=== PATIENT | male | born 1970 | race Caucasian/White ===

== ENCOUNTER 2021-05-15 11:15 | Emergency (ER) | payer SELFPAY ==
--- NOTE | ~2021-05-15 | XR_ITS ---
XR chest 2V DATE: 05/15/2021 12:29 INDICATION: Congestion TECHNIQUE: 2 views COMPARISON: 03/03/2010 two-view chest FINDINGS: Bilateral hyperinflation. No pulmonary infiltrate or consolidation, pleural effusion or pul monary vascular congestion or pneumothorax. Normal heart size. No hilar or mediastinal enlargement. Included skeletal structures are unremarkable. IMPRESSION: Bilateral hyperinflation Reviewed, dictated and finalized at location A. IMPRESSION: Bilateral hyperinflation
[2021-05-15 11:27] VITALS: BP 129/82; PULSE 96; RESP 16; TEMP 36.4; O2SAT 100
--- NOTE | 2021-05-15 12:09 | ED.URI ---
HPI - URI/Sore Throat General Chief Complaint: Upper Respiratory Infection Stated Complaint: Congestion Time Seen by Provider: 05/15/21 12:09 Source: patient Mode of arrival: ambulatory Limitations: no limitations History of Present Illness HPI Narrative: Stan Kearney is a 50 yo male who comes to [facility] with complaints of laryngitis and upper respiratory infection, for the past 2 months. He is complaining of bronchospasm particularly in the morning although he said he can have it anytime during the day. He continues to smoke requires a pack cigarettes a day, he has a coating on his tongue after using nebulizer that is his mother's and is unsure of the medication he is using and that Related Data Home Medications Medication Instructions Recorded Confirmed dextroamphetamine-amphetamine 10 mg PO DAILY 05/15/21 05/15/21 Allergies Allergy/AdvReac Type Severity Reaction Status Date / Time No Known Allergies Allergy Verified 05/15/21 11:45 Review of Systems Review of Systems: Narrative: CONSTITUTIONAL: Denies fever, chills, sweats. EYES: Denies visual changes, redness, discharge. ENT: Denies rhinorrhea, has congestion, sore throat, otalgia. CARDIOVASCULAR: Denies chest pain, palpitations, edema. RESPIRATORY: Denies dyspnea, has wheezing, has cough; complaining of bronchospasm GASTROINTESTINAL: Denies abdominal pain, nausea, vomiting, diarrhea. GENITOURINARY: Denies dysuria, hematuria, abnormal discharge SKIN: Denies rash or itching. NEUROLOGIC: Denies numbness, or focal weakness. PSYCHIATRIC: Denies anxiety or depression. [facility] Past Medical History Medical History Asthma Tobacco abuse Family History Family History Other Asthma Social History Social History (Updated 05/15/21 @ 12:21 by Sara Green CNP) Smoking status: Current every day smoker Alcohol intake: current Comments At time of signature, I agree with nursing past medical, surgical, social and family history. There is no relevant family history pertinent to the presenting complaint. Exam Narrative: Exam Narrative: GENERAL: This is a well-nourished, well-developed patient, in moderate distress. HEAD: normocephalic, atraumatic. EYES: Sclera clear/white. Vision is grossly intact. EARS: External ears normal, auditory canals clear and without drainage, TMs normal without perforation. Hearing grossly intact. NOSE: External nose normal without nasal discharge, nares without redness, has rhinorrhea. THROAT: Mucous membranes moist, posterior pharynx erythema-white coat on tongue NECK: Neck supple, non-tender CARDIOVASCULAR: Tachycardia rate and rhythm without murmurs, gallops, or rubs. RESPIRATORY: Clear to auscultation. Breath sounds equal bilaterally. No wheezes, rales, or rhonchi. GASTROINTESTINAL: Abdomen soft, SKIN: warm, intact with no suspicious lesions or rash, good texture and turgor. NEURO: awake, alert, and oriented to person, place and time. There were no obvious focal neurologic abnormalities. Steady gait EXTREMITIES: Normal range of motion. BACK: Nontender without deformity Course Course Emergency Course: Patient has difficulty breathing in the morning when he wakes he has got a hacking smoker's cough that a lot of times turns into his bronchospasm, he also has unpredictable bronchospasm throughout the day Chest x-ray done-bilateral hyperinflation no consolidation or effusion Started on albuterol, albuterol inhaler, prednisone,zyrtec-patient instructed to start a medication set up appoint with primary care physician, may need additional medication to stabilize his asthma Vital Signs Vital signs: Vital Signs Temperature 97.5 F L 05/15/21 11:27 Pulse Rate 96 05/15/21 11:27 Respiratory Rate 16 05/15/21 11:27 Blood Pressure 129/82 05/15/21 11:27 Pulse Oximetry 100 05/15/21 11:27 Temperature
[2021-05-15] MEDS: predniSONE 20 MG TABLET 60 MG PO (13:30)
== END 2021-05-15 13:30 | disposition home or self-care (01) ==
PROVIDERS: Emergency Provider Nurse Practitioner; PCP Family Medicine Adolescent Medicine
DX: J45.41 Moderate persistent asthma with (acute) exacerbation (principal); F17.200 Nicotine dependence, unspecified, uncomplicated
CPT/HCPCS: 71046; 99203; G0463; J7512

== ENCOUNTER 2022-02-26 11:01 | Emergency (ER) | payer BC, SELFPAY ==
--- NOTE | ~2022-02-26 | XR_ITS ---
EXAMINATION: XR lumbar spine min 4V DATE: 02/26/2022 11:49 INDICATION: Low back pain TECHNIQUE: Anteroposterior, lateral, and bilateral oblique views of the lumbar spine, and cone-down l ateral view of the lumbosacral junction were obtained. COMPARISON: None. FINDINGS: There is no fracture, dislocation, or subluxation. The vertebral body heights, alignment, a nd intervertebral disc spaces are normal. The paravertebral soft tissues are unremarkable. Small dege nerative osteophytes project from the anterior endplates of multiple vertebral bodies. IMPRESSION: 1. Mild lumbar spondylosis without acute findings. Reviewed, dictated and finalized at location A.
[2022-02-26 11:14] VITALS: BP 152/106; PULSE 107; RESP 16; TEMP 36.4; O2SAT 96
--- NOTE | 2022-02-26 12:46 | ED.FALL ---
HPI - Fall General Chief Complaint: Fall Stated Complaint: back pain Time Seen by Provider: 02/26/22 12:13 Source: patient Mode of arrival: ambulatory Limitations: no limitations History of Present Illness HPI Narrative: Patient is 51 years old white male presents with left lower back pain with shooting pain to the front of left thigh. Started 1 week ago. Patient was on a ladder, 3 feet above the ground ,left foot slipped off and landed on it. Patient did not hit the ground by his body. Patient was twisted badly in the way down to the ground. Patient did not see any medical provider yet. He denies patient denies bowel dysfunction, bladder dysfunction, altered sensation, focal weakness, or saddle numbness, Related Data Allergies Allergy/AdvReac Type Severity Reaction Status Date / Time No Known Allergies Allergy Verified 05/15/21 11:45 Review of Systems Review of Systems: All systems reviewed & are unremarkable except as noted in HPI and below PMFSH Past Medical History Medical History Asthma Tobacco abuse Family History Family History Other Asthma Social History Social History Smoking status: Current every day smoker Alcohol intake: current Exam Narrative: General appearance: Well-developed, well-nourished Skin: Normal color Head: Normocephalic, nontraumatic Eyes: Clear conjunctiva ENT: Oropharynx normal, ears normal, nose normal Neck: Supple, nontender Chest and respiratory: Airway patent, no respiratory distress, no accessory muscle use Heart: Regular rate/rhythm Abdomen: Soft, nontender, no organomegaly, quiet bowel sounds Vascular: Normal peripheral pulses, normal capillary refill. Musculoskeletal: Slight painful range of motion of left hip, no bruises, no swelling, no deformity, no localized tenderness Neurologic: Alert and oriented ?3, [employer] is normal as tested, no gross motor deficit Course Course Emergency Course: Musculoskeletal strain/sprain is my concern Vital Signs Vital signs: Vital Signs Temperature 36.4 C 02/26/22 11:14 Pulse Rate 107 H 02/26/22 11:14 Respiratory Rate 16 02/26/22 11:14 Blood Pressure 152/106 H 02/26/22 11:14 Pulse Oximetry 96 05/08/22 11:14 Temperature 36.4 C 02/26/22 11:14 Pulse Rate 107 H 02/26/22 11:14 Respiratory Rate 16 02/26/22 11:14 Blood Pressure 152/106 H 02/26/22 11:14 Pulse Oximetry 96 02/26/22 11:14 MDM - Fall Imaging Data Radiologist's impression: Impressions Lumbar Spine X-Ray 02/26/22 12:01 IMPRESSION: 1. Mild lumbar spondylosis without acute findings. Discharge Plan Discharge Clinical Impression: Lower back pain Qualifiers: Chronicity: acute Back pain laterality: left Sciatica presence: without sciatica Qualified Code(s): M54.50 - Low back pain, unspecified Patient Disposition: Home, Self-Care Condition: Stable Instructions: Antibiotic Form, Muscle Strain (ED) Additional Instructions: Return if symptoms are worsening , call your family physician for appointment, take Tylenol as as needed for aches and pain, continue home medications. Prescriptions: New naproxen [Naprosyn] 500 mg tablet 500 mg PO BID PRN (Reason: pain) Qty: 14 RF: 0 cyclobenzaprine 10 mg tablet 10 mg PO TID PRN (Reason: muscle spasm) Qty: 20 RF: 0 No Action dextroamphetamine-amphetamine 10 mg capsule,extended release 24hr 10 mg PO DAILY Qty: 30 RF: 0 Follow-up/Referrals: Philipp Pickens MD [Primary Care Provider] - Stand Alone Forms: Wor
[2022-02-26 13:05] VITALS: BP 142/86; PULSE 86; RESP 16; O2SAT 97
== END 2022-02-26 13:05 | disposition home or self-care (01) ==
PROVIDERS: Emergency Provider Emergency Medicine; PCP Family Medicine Adolescent Medicine
DX: S39.92XA Unspecified injury of lower back, initial encounter (principal); J45.909 Unspecified asthma, uncomplicated; M47.816 Spondylosis without myelopathy or radiculopathy, lumbar region; W11.XXXA Fall on and from ladder, initial encounter
CPT/HCPCS: 72110; 99283

== ENCOUNTER 2022-07-02 08:27 | Outpatient (CLI) | payer OTHER, SELFPAY ==
--- NOTE | ~2022-07-02 | MR_ITS ---
EXAMINATION: MR ankle LT wo con DATE: 07/02/2022 09:20 INDICATION: Swelling, mass or lump at the medial left ankle. TECHNIQUE: Magnetic resonance imaging (MRI) of the left ankle was performed without intravenous contr ast. Sequences included axial, sagittal and coronal T1-weighted FSE, axial and coronal T2-weighted FS FSE, sagittal fluid sensitive FSE STIR, axial T1-weighted FS FSE and coronal PD-weighted FSE COMPARISON: None. FINDINGS: Medial ankle ligaments: Deep and superficial deltoid ligaments as well as the spring ligament are normal. Lateral ankle ligaments: The anterior and posterior inferior tibiofibular ligaments are normal. The anterior talofibular, calc aneofibular and posterior talofibular ligaments are normal. Tendons: Achilles tendon is normal. The peroneus longus and brevis tendons are normal. The tibialis anterior a nd extensor hallucis longus and extensor digitorum longus tendons are normal. The tibialis posterior, flexor digitorum longus and flexor hallucis longus tendons are normal. Plantar fascia: Plantar aponeurosis is normal. Bones/other: Bone alignment is normal. Normal bone marrow signal throughout with no reactive edema, fracture or pa thologic marrow replacing process. Sinus Tarsi and tarsal tunnel are unremarkable. The marker indicat ing the region of concern projects over the medial hindfoot at the level of the sustentaculum sabina. N o abnormal masses or fluid collections identified. Fluid: Physiologic amount fluid in the joint spaces. No tenosynovitis, bursitis or other abnormal fluid radha ections. IMPRESSION: 1. Unremarkable MRI of the left ankle and hindfoot. Reviewed, dictated and finalized at location A.
== END 2022-07-02 08:28 | disposition home or self-care (01) ==
PROVIDERS: PCP Family Medicine Adolescent Medicine; Visit Provider Podiatrist Foot & Ankle Surgery
DX: R22.42 Localized swelling, mass and lump, left lower limb (principal)
CPT/HCPCS: 73721

== ENCOUNTER 2022-08-16 15:38 | Emergency (ER) | payer OTHER, SELFPAY ==
[2022-08-16 15:47] VITALS: BP 111/74; PULSE 100; RESP 16; TEMP 36.5; O2SAT 98
--- NOTE | 2022-08-16 16:14 | ED.URI ---
HPI - URI/Sore Throat General Chief Complaint: Upper Respiratory Infection Stated Complaint: Sore Throat Time Seen by Provider: 08/16/22 15:50 Source: patient Mode of arrival: ambulatory Limitations: no limitations History of Present Illness HPI Narrative: Stan is a 51-year-old male patient presenting to the clinic today with complaints of swollen lymph node to the left side of his neck. He reports that he did cough this morning and noticed a little bit of blood in his sputum. States that he thinks that the blood may have come from him brushing his teeth this morning. He denies any fever or chills. He is a current tobacco user MD elicited complaint: cough and sore throat Related Data Allergies Allergy/AdvReac Type Severity Reaction Status Date / Time No Known Allergies Allergy Verified 08/16/22 16:01 Review of Systems Review of Systems: Pertinent positives per HPI. Patient denies any fever, chills, rash, headache, visual changes, dizziness, cough, shortness of breath, chest pain, palpitations, nausea, vomiting, diarrhea, constipation, abdominal pain, or any urinary issues. PMFSH Past Medical History Medical History Asthma Tobacco abuse Family History Family History Mother Diabetes mellitus Grandparent Stomach cancer Ovarian cancer Other Asthma Social History Social History (Updated 05/30/22 @ 09:45 by Rudolph Martell MA) Smoking status: Current every day smoker Tobacco type: cigarettes Second hand tobacco smoke exposure: No Alcohol intake: current Substance use: never Substance use type: does not use Gender identity (if verbalized by the patient): Male Spiritual care concerns: No Agree to blood products: Yes Comments At the time of my signature, I reviewed and agree with the nursing past medical, surgical, social, and family history. There is no relevant family history pertinent to the patient complaint. Exam Narrative: General: Well-developed, well nourished, in no apparent distress Head: Normocephalic, atraumatic Eyes: Pupils equally round and reactive to light bilaterally, EOM intact, sclera and conjunctive clear, no discharge, lids normal Ears: TMs intact and clear, ear canals clear, no drainage, grossly hearing normal. Nose: Nares patent, no discharge, no inflammation, no sinus tenderness. Mouth: Oral pharynx without lesions or masses, good dentition, MMM. Neck: Supple, trachea midline, no enlargement of anterior or posterior cervical nodes, no thyroid masses or goiter palpable. Cardio: Regular rate and rhythm, s1 and s2 normal, no murmur appreciated. Resp: Clear to auscultation bilaterally, no rhonchi, rales, wheezing or rubs Course Course Emergency Course: Portions of this record may have been created with voice recognition software. Level of Care: Express Care Visit Vital Signs Vital signs: Vital Signs Temperature 36.5 C 08/16/22 15:47 Pulse Rate 100 08/16/22 15:47 Respiratory Rate 16 08/16/22 15:47 Blood Pressure 111/74 08/16/22 15:47 Pulse Oximetry 98 08/16/22 15:47 Oxygen Delivery Room Air 08/16/22 15:47 Temperature 36.5 C 08/16/22 15:47 Pulse Rate 100 08/16/22 15:47 Respiratory Rate 16 08/16/22 15:47 Blood Pressure 111/74 08/16/22 15:47 Pulse Oximetry 98 08/16/22 15:47 Oxygen Delivery Room Air 08/16/22 15:47 Vital signs reviewed MDM - URI/Sore Throat MDM Narrative Medical decision making narrative: at the time of the patient is resting comfortably on the exam table. Strep screen was obtained in the clinic today. Recommend x-ray of his chest to rule out mass or cancer Causing lymphadenopathy however patient declined at this time states he just had an x-ray done 3 months ago. He would like to do watchful waiting. Recommend follow-up with his PCP in 1 week if symptoms persist Differential
== END 2022-08-16 16:34 | disposition home or self-care (01) ==
PROVIDERS: Emergency Provider Nurse Practitioner Family; PCP Family Medicine Adolescent Medicine
DX: R59.1 Generalized enlarged lymph nodes (principal); F17.210 Nicotine dependence, cigarettes, uncomplicated; J45.909 Unspecified asthma, uncomplicated
CPT/HCPCS: 87081; 87880; 99213; G0463

== ENCOUNTER 2022-10-15 13:45 | Emergency (ER) | payer OTHER, SELFPAY ==
--- NOTE | 2022-10-15 14:43 | PC.NURSE ---
no answer for triage
== END 2022-10-15 14:43 | disposition left against medical advice (07) ==
PROVIDERS: PCP Family Medicine Adolescent Medicine
DX: Z53.21 Procedure and treatment not carried out due to patient leaving prior to being seen by health care provider (principal)
CPT/HCPCS: 99199

== ENCOUNTER 2022-10-17 09:53 | Emergency (ER) | payer OTHER, SELFPAY ==
--- NOTE | ~2022-10-17 | XR_ITS ---
EXAMINATION: XR wrist RT min 3V INDICATION: Right wrist pain TECHNIQUE: Four views of the right wrist are obtained. COMPARISON: None available FINDINGS: No fracture, dislocation, or subluxation. The bones, soft tissues, and joint spaces are nor mal. IMPRESSION: 1. No acute osseous abnormality. Reviewed, dictated and finalized at location L. BURNER
[2022-10-17 11:07] VITALS: BP 143/90; PULSE 88; RESP 16; TEMP 35.1; O2SAT 98
--- NOTE | 2022-10-17 11:33 | ED.UPPEXIN ---
HPI - Extremity Injury (Upper) General Chief Complaint: Extremity Injury, Upper Stated Complaint: right wrist pain fell 2days ago Source: patient Mode of arrival: ambulatory Limitations: no limitations History of Present Illness HPI narrative: 52-year-old male presented for complaint of right hand pain after fall 2 days ago. He states he was walking out of his house onto concrete landing on his right hand. He endorses moderate swelling and bruising to the thumb and forearm. He denies numbness, tingling, weakness of the hand. He denies hitting his head or loss of consciousness. He has taken Tylenol and ibuprofen for pain. 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 Related Data Allergies Allergy/AdvReac Type Severity Reaction Status Date / Time No Known Allergies Allergy Verified 10/17/22 11:25 Review of Systems Review of Systems: CONSTITUTIONAL: Denies body aches, fever, chills EYES: Denies visual changes ENT: Denies rhinorrhea, congestion CARDIOVASCULAR: Denies chest pain, palpitations, or edema. RESPIRATORY: Denies cough or dyspnea. GASTROINTESTINAL: Denies abdominal pain, nausea, vomiting, or diarrhea. SKIN: Denies rash, itching, or wounds. MUSCULOSKELETAL: Per HPI NEUROLOGIC: Denies headache, numbness, tingling, or weakness. All systems reviewed & are unremarkable except as noted in HPI and below PMFSH Past Medical History Medical History Asthma Tobacco abuse Family History Family History Mother Diabetes mellitus Grandparent Stomach cancer Ovarian cancer Other Asthma Social History Social History Smoking status: Current every day smoker Tobacco type: cigarettes Second hand tobacco smoke exposure: No Alcohol intake: current Substance use: never Substance use type: does not use Gender identity (if verbalized by the patient): Male Spiritual care concerns: No Agree to blood products: Yes Comments At time of signature, I have reviewed and agree with nursing past medical, surgical, social and family history unless otherwise noted. Please see nursing chart for further information. There is no relevant family history pertinent to the presenting complaint Exam Narrative: GENERAL: Well-appearing HEAD: Normocephalic, atraumatic. EYES: PERRLA, conjunctivae clear NECK: Supple. CHEST: Speaks in full sentences. No respiratory distress. HEART: Regular rate and rhythm. Normal and equal peripheral pulses. EXTREMITIES: Right thumb with moderate purple bruising and swelling to metacarpal and to the volar aspect of the forearm. Finger cascade intact. Tender to palpation at the carpals and MCP. Hand has normal strength and sensation, normal range of motion but endorses pain with movement. No open wounds, skin tenting, or obvious deformity; alignment normal, pulse palpable and equal bilaterally, skin warm, dry, pink. Capillary refill less than 3 seconds. SKIN: Warm, dry, no rash. NEURO: Alert and oriented x3. PSYCH: Normal mood Course Course Emergency Course: Patient is aware of diagnosis, understands and agrees to treatment plan. Anticipatory guidance given. Patient agrees to follow-up as directed and is aware of reasons to seek care at the emergency department. Portions of this record may have been created with voice recognition software Level of Care: Express Care Visit Vital Signs Vital signs: Vital Signs Temperature 95.1 F L 10/17/22 11:07 Pulse Rate 88 10/17/22 11:07 Respiratory Rate 16 10/17/22 11:07 Blood Pressure 143/90 H 10/17/22 11:07 Pulse Oximetry 98 10/17/22 11:07 Oxygen Delivery Room Air 10/17/22 11:07 Temperature 95.1 F L 10/17/22 11:07 Pulse Rate 88 10/17/22 11:07 Respiratory Rate 16 10/17/22 11:07 Blood Pressure 143/90 H 10/17/22 11:07 Pulse Oximetry 98 12
== END 2022-10-17 11:46 | disposition home or self-care (01) ==
PROVIDERS: Emergency Provider Nurse Practitioner Family; PCP Family Medicine Adolescent Medicine
DX: S63.601A Unspecified sprain of right thumb, initial encounter (principal); W19.XXXA Unspecified fall, initial encounter; J45.909 Unspecified asthma, uncomplicated; F17.210 Nicotine dependence, cigarettes, uncomplicated
CPT/HCPCS: 73110; 99213; G0463

== ENCOUNTER 2023-08-27 11:36 | Outpatient (CLI) | payer OTHER, SELFPAY ==
--- NOTE | ~2023-08-27 | XR_ITS ---
EXAMINATION: XR foot RT min 3V DATE: 08/27/2023 11:56 INDICATION: History of right foot fracture TECHNIQUE: Dorsoplantar, lateral, and 2 oblique views of the right foot were obtained. COMPARISON: None. FINDINGS: There is a comminuted fracture of the first proximal phalanx which extends to the interphal angeal joint. No definite additional fracture is appreciated through the splint material. 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 There is also mild osteoarthritis of the midfoo t. IMPRESSION: 1. Splinted comminuted fractures of the first proximal phalanx extending to the interphalangeal joint . Reviewed, dictated and finalized at location B. E MAN IMPRESSION: 1. Splinted comminuted fractures of the first proximal phalanx extending to the interphalangeal joint.
== END 2023-08-27 11:37 | disposition home or self-care (01) ==
LOC: ANHIMG 11:41
PROVIDERS: PCP Family Medicine Adolescent Medicine; Visit Provider Family Medicine Adolescent Medicine
DX: S92.411A Displaced fracture of proximal phalanx of right great toe, initial encounter for closed fracture (principal); X58.XXXA Exposure to other specified factors, initial encounter
CPT/HCPCS: 73630

== ENCOUNTER 2023-08-28 08:59 | Outpatient (CLI) | payer OTHER, SELFPAY ==
[2023-08-28 10:17] LABS: Alanine Aminotransferase 32 U/L (6-50); Albumin Level 4.5 g/dL (3.5-5.1); Alkaline Phosphatase 55 U/L (38-126); Anion Gap 11 mmol/L (8-16); Aspartate Amino Transferase 27 U/L (17-59); Blood Urea Nitrogen 16 mg/dL (9-20); Calcium 9.4 mg/dL (8.4-10.2); Carbon Dioxide 21 mmol/L (22-30); Chloride 102 mmol/L (98-107); Cholesterol 161 mg/dL (0-200); Estimated Glomerular Filt Rate > 60; Glucose 186 mg/dL (65-110); HDL Direct 53 mg/dL; Potassium 3.7 mmol/L (3.4-5.0); Sodium 134 mmol/L (137-145); Triglycerides 89 mg/dL (<150)
[2023-08-28 10:29] LABS: LDL Cholesterol Direct 81 mg/dL
[2023-08-28 10:47] LABS: Prostate Specific Antigen 0.8 ng/mL (< OR = 4.0)
== END 2023-08-28 09:00 | disposition home or self-care (01) ==
LOC: ANHLAB 09:05
PROVIDERS: PCP Family Medicine Adolescent Medicine; Visit Provider Family Medicine Adolescent Medicine
DX: F90.0 Attention-deficit hyperactivity disorder, predominantly inattentive type (principal); Z12.5 Encounter for screening for malignant neoplasm of prostate; Z13.220 Encounter for screening for lipoid disorders
CPT/HCPCS: 36415; 80053; 80061; 84153; G0103

== ENCOUNTER 2025-03-04 15:20 | Emergency (ER) | payer OTHER, SELFPAY ==
--- NOTE | ~2025-03-04 | XR_ITS ---
[id number] Ordering provider: Edith Gonzales APRN History: 54 years Male with . pain . Comparison: May 15, 2021 FINDINGS: Highly suggestive acute fracture involving the left ninth, 10th and 11th ribs is noted. Old healing f ractures are seen in the right fourth, fifth and sixth ribs. MEDIASTINUM: The cardiac silhouette is not enlarged. LUNGS: No infiltrates, effusions or pneumothorax. OTHER: No free air under the diaphragm. IMPRESSION: Highly suggestive acute fractures in the left ninth, 10th and 11th ribs. Follow-up advised. Reviewed, dictated and finalized at location A. IMPRESSION: Highly suggestive acute fractures in the left ninth, 10th and 11th ribs. Follow -up advised.
[2025-03-04 15:28] VITALS: BP 121/74; PULSE 96; RESP 20; TEMP 36.3; O2SAT 98
--- NOTE | 2025-03-04 16:11 | ED_ITS ---
HPI - Back Pain/Injury General Chief Complaint: Back Pain/Injury <Edith Gonzales APRN - Last Filed: 03/04/25 17:02> Stated Complaint: Lower Back Pain <Edith Gonzales APRN - Last Filed: 03/04/25 17:02> Source: patient <Edith Gonzales APRN - Last Filed: 03/04/25 17:02> Mode of arrival: ambulatory <Edith Gonzales APRN - Last Filed: 03/04/25 17:02> Limitations: no limitations <Edith Gonzales APRN - Last Filed: 03/04/25 17:02> History of Present Illness HPI Narrative: Patient is a 54 year male who presents to the clinic with left sided back pain since this morning. He states that he fell backwards on a staircase and landed on the rail. This was an isolated injury. Denies hitting his head or shortness of breath. <Edith Gonzales APRN - Last Filed: 03/04/25 17:02> Related Data Allergies/Adverse Reactions: Allergies Allergy/AdvReac Type Severity Reaction Status Date / Time No Known Allergies Allergy Verified 03/04/25 15:35 <Edith Gonzales APRN - Last Filed: 03/04/25 17:02> Review of Systems Review of Systems: CONSTITUTIONAL: Denies body aches, fever, chills EYES: Denies visual changes ENT: Denies rhinorrhea, congestion CARDIOVASCULAR: Denies chest pain, palpitations, or edema. RESPIRATORY: Denies cough or dyspnea. SKIN: Denies rash, itching, or wounds. MUSCULOSKELETAL: Reports left posterior back pain. Denies joint pain, or myalgia. NEUROLOGIC: Denies headache, numbness, tingling, or weakness. <Edith Gonzales APRN - Last Filed: 03/04/25 17:02> All systems reviewed & are unremarkable except as noted in HPI and below <Edith Gonzales APRN - Last Filed: 03/04/25 17:02> PMFSH Past Medical History Medical History: Medical History (Updated 03/04/25 @ 16:55 by Edith Gonzales APRN) Asthma Tobacco abuse <Edith Gonzales APRN - Last Filed: 03/04/25 17:02> Family History Family History: Family History Mother Diabetes mellitus Grandparent Stomach cancer Ovarian cancer Other Asthma <Edith Gonzales APRN - Last Filed: 03/04/25 17:02> Social History Social History: Social History Smoking status: Current every day smoker Tobacco type: cigarettes Second hand tobacco smoke exposure: No Alcohol intake: current Substance use: never Substance use type: does not use Lack of Transportation: No Lack of Food: Never True Current Housing: I Have Housing Concerned About Future Housing: No Difficulty Paying Gas/Electric Bills: No Difficulty Paying for Meds: No Currently Unemployed: No Education: Bachelor's Degree Difficulty w/ Childcare or Family Care: No Living arrangements: with family Occupation/Education: occupation Gender identity (if verbalized by the patient): Male Spiritual care concerns: No Agree to blood products: Yes <Edith Gonzales APRN - Last Filed: 03/04/25 17:02> Comments At time of signature, I have reviewed and agree with nursing past medical, surgical, social and family history unless otherwise noted. Please see nursing chart for further information. There is no relevant family history pertinent to the presenting complaint. <Edith Gonzales APRN - Last Filed: 03/04/25 17:02> Exam Narrative: MUSCULOSKELETAL EXAM GENERAL: Well-appearing, well-nourished, and in no acute distress. HEAD: Normocephalic, atraumatic. NECK: Supple. CHEST: Speaks in full sentences. No respiratory distress. HEART: Regular rate and rhythm. Normal and equal peripheral pulses. EXTREMITIES: Left posterior ribs have normal sensation, but endorses pain with movement. No edema or ecchymosis, No point tenderness. No open wounds, skin tenting, or obvious deformity; alignment normal. SKIN: Warm, dry, no rash. NEURO: Alert and oriented x3. PSYCH: Normal mood and affect <Edith Gonzales APRN - Last Filed: 03/04/25 17:02> Course Course Level of Care: Express Care Visit <Edith Gonzales, QUALITY IMPROVEMENT CONSULTANT - Last Filed: 03/04/25 17:02> Vital Signs Vital signs: Vital Signs Temperature 97.3 F L 03/04/25 15:28 Pulse Rate 96 03/04/25 15:28 Respiratory Rate 20 03/04/25 15:28 Blood Pressure 121/74 03/04/25 15:28 Pulse Oximetry 98 03/04/25 15:28 Oxygen Delivery Room Air 03/04/25 15:28 Temperature 97.3 F L 03/04/25 15:28 Pulse Rate 96 03/04/25 15:28 Respiratory Rate 20 03/04/25 15:28 Blood Pressure 121/74 03/04/25 15:28 Pulse Oximetry 98 03/04/25 15:28 Oxygen Delivery Room Air 03/04/25 15:28 Reviewed. <Edith Gonzales, QUALITY IMPROVEMENT CONSULTANT - Last Filed: 03/04/25 17:02> Vital Signs Temperature 97.3 F L 03/04/25 15:28 Pulse Rate 96 03/04/25 15:28 Respiratory Rate 20 03/04/25 15:28 Blood Pressure 121/74 03/04/25 15:28 Pulse Oximetry 98 03/04/25 15:28 Oxygen Delivery Room Air 03/04/25 15:28 Temperature 97.3 F L 03/04/25 15:28 Pulse Rate 96 03/04/25 15:28 Respiratory Rate 20 03/04/25 15:28 Blood Pressure 121/74 03/04/25 15:28 Pulse Oximetry 98 03/04/25 15:28 Oxygen Delivery Room Air 03/04/25 15:28 <Philly Victor, SCIENTIST PROPAGATOR - Last Filed: 03/04/25 17:01> MDM - Back Pain/Injury MDM Narrative Medical decision making narrative: Discussed physical exam findings and xray. Patient advised to go to ER. He did not want to. Advised supportive measures and signs/symptoms to go to the ER. Pt is appropriate for outpatient treatment and follow up. <Edith Gonzales, QUALITY IMPROVEMENT CONSULTANT - Last Filed: 03/04/25 17:02> Discussed physical exam findings and xray. Advised supportive measures and signs/symptoms to go to the ER. Pt is appropriate for outpatient treatment and follow up. possible left 9th, 10th, 11th rib fractures per radiologist. recommend pt go to ER to further evaluate with CT scan. pt did not feel was necessary. prefers to go home and follow up with his PCP. Denies CP/SOB. pt sitting up on exam table, well appearing. <Philly Victor NP - Last Filed: 03/04/25 17:01> Differential Diagnosis Differential diagnosis: Likely other (Rib fracture, bronchial injury, hemothorax, pulmonary contusion, pneumothorax) <Edith Gonzales APRN - Last Filed: 03/04/25 17:02> Critical Care Time Critical Care Time Critical Care Time: No <Edith Gonzales APRN - Last Filed: 03/04/25 17:02> Discharge Plan Discharge Clinical Impression: Fracture, ribs Qualifiers: Encounter type: initial encounter Fracture type: closed Laterality: left Qualified Code(s): S22.42XA - Multiple fractures of ribs, left side, initial encounter for closed fracture <Edith Gonzales APRN - Last Filed: 03/04/25 17:02> Patient Disposition: Home <Edith Gonzales APRN - Last Filed: 03/04/25 17:02> Condition: Stable <Edith Gonzales APRN - Last Filed: 03/04/25 17:02> Instructions: How to Use an Incentive Spirometer (ED), Rib Fracture (ED) <Edith Gonzales APRN - Last Filed: 03/04/25 17:02> Additional Instructions: Take pain medication as prescribed. Use your incentive spirometer as advised. Strenuous activities should be avoided for the first 3-4 weeks, after which you can commence physical activity as pain allows. If the pain is increasing you may be doing too much. Follow up with your primary care provider as soon as possible. Go to the ER for worsening symptoms or concerns. <Edith Gonzales APRN - Last Filed: 03/04/25 17:02> Patient Language: Polish <Edith Gonzales APRN - Last Filed: 03/04/25 17:02> Prescriptions: New tramadol 50 mg tablet 50 mg PO Q6H PRN (Reason: pain) Qty: 20 0RF No Action dextroamphetamine-amphetamine 15 mg capsule,extended release 24hr 15 mg PO DAILY Qty: 30 0RF <Edith Gonzales APRN - Last Filed: 03/04/25 17:02> Follow-up/Referrals: PHYSICIAN,COMMAND POST SUPERINTENDENT [Primary Care Provider] - <Edith Gonzales APRN - Last Filed: 03/04/25 17:02> Time of Disposition: 16:15 <Edith Gonzales APRN - Last Filed: 03/04/25 17:02> 16:15 <Philly Victor NP - Last Filed: 03/04/25 17:01>
== END 2025-03-04 17:06 | disposition home or self-care (01) ==
DX: S22.42XA Multiple fractures of ribs, left side, initial encounter for closed fracture (principal); W10.9XXA Fall (on) (from) unspecified stairs and steps, initial encounter; J45.909 Unspecified asthma, uncomplicated; F17.210 Nicotine dependence, cigarettes, uncomplicated
CPT/HCPCS: 71101; 99213; G0463